=== PATIENT | male | born 1950 | race Caucasian/White ===

== ENCOUNTER 2023-04-16 17:33 | Emergency (ER) | payer OTHER, SELFPAY ==
[2023-04-16] VITALS (12 sets, daily range): BP systolic 104–146; BP diastolic 58–79; PULSE 94–104; RESP 15–32; TEMP 37.4; O2SAT 95–100; BMI 31.5
--- NOTE | 2023-04-16 17:52 | ECG_ITS ---
The [facility] Test Date: 2023-04-16 Pat Name: VALENTIN FOREMANN Department: Room: - Gender: Male Business Professor: : 1950 Requested By: Laron Connolly Order Number: [id number] Reading MD: LORENA QUILES Measurements Intervals Mitchell Rate: 96 P: 22 ME: 164 QRS: 0 QRSD: 74 T: 43 QT: 344 QTc: 398 Interpretive Statements 1100 Sinus rhythm 9110 normal ECG No previous ECG available for comparison Electronically Signed On 04-17-2023 6:50:28 EST by LORENA QUILES
--- NOTE | 2023-04-16 17:53 | XR_ITS ---
The [address] [address] Patient Name: VALENTIN MOJICA MRN: [id number] date: 1950 Sex: M Assigned Patient Location: ER Current Patient Location: ED.MAIN Accession/Order Number: [id number] Exam Date: 04/16/2023 18:17 Report Date: 04/16/2023 19:44 At the request of: JOCE LAWS Procedure: XR acute abdomen series EXAM: XR acute abdomen series HISTORY: cough, vomiting COMPARISON: None. TECHNIQUE: Frontal view of the chest as well as upright and supine views of the abdomen FINDINGS: The heart size is within normal limits. No dense focal consolidation, pneumothorax or pleural effusion is seen. Nonspecific bowel gas pattern is seen. No air-filled distended loops of bowel is seen to suggest bowel obstruction. No gross pneumoperitoneum is seen. No definite pathologic calcification is seen. Patient is post left hip arthroplasty. Mild diffuse bony demineralization is seen. XR/XR acute abdomen series IMPRESSION: No acute abnormality. Electronically authenticated by: ANIL MARTINEZ Date: 04/16/2023 19:44
[2023-04-16 18:35] LABS: Basophils Percent Auto 0.1 % (0.2-2.0); Eosinophils Absolute Auto 0.1 10^3/uL (0.0-0.7); Eosinophils Percent Auto 0.8 % (0.9-7.0); Hematocrit 30.3 % (42.0-54.0); Hemoglobin 9.8 g/dL (14.0-18.0); Immature Granulocytes Abs Auto 0.08 10^3/uL (0.00-0.03); Immature Granulocytes Pct Auto 1.1 % (0.0-0.5); Lymphocytes Absolute Auto 1.6 10^3/uL (1.2-3.8); Lymphocytes Percent Auto 22.6 % (20.5-60.0); Mean Corpuscular HGB Conc 32.3 g/dL (29.9-35.2); Mean Corpuscular Hemoglobin 29.7 pg (25.9-34.0); Mean Corpuscular Volume 91.8 fL (80.0-94.0); Mean Platelet Volume 9.7 fL (9.5-13.5); Monocytes Absolute Auto 0.8 10^3/uL (0.3-0.8); Neutrophils Absolute Auto 4.6 10^3/uL (1.4-6.5); Neutrophils Percent Auto 64.4 % (43.0-75.0); Platelet Count 237 10^3/uL (150-450); Red Cell Distribution Width 13.7 % (11.0-15.0); White Blood Count 7.2 10^3/uL (4.0-11.0)
[2023-04-16] MEDS: 0.9 % SODIUM CHLORIDE 1,000 ML 999 ML IV (18:35)
[2023-04-16 18:37] LABS: Alanine Aminotransferase 18 U/L (16-63); Albumin Globulin Ratio 0.8; Albumin Level 3.2 g/dL (3.4-5.0); Alkaline Phosphatase 73 U/L (46-116); Anion Gap 15.4; Aspartate Amino Transferase 20 U/L (15-37); Bilirubin Total 0.6 mg/dL (0.2-1.0); Calcium 9.2 mg/dL (8.5-10.1); Carbon Dioxide 25.9 mmol/L (21.0-32.0); Chloride 101 mmol/L (98-107); Estimated GFR (African America >60 (>=60); Estimated GFR (Non-African Ame >60 (>=60); Globulin 4.1 g/dL; Glucose 130 mg/dL (74-106); Potassium 3.3 mmol/L (3.5-5.1); Sodium 139 mmol/L (136-145); Total Protein 7.3 g/dL (6.4-8.2)
[2023-04-16 18:38] LABS: Lactate/Lactic Acid 1.6 mmol/L (0.4-2.0)
[2023-04-16 18:43] LABS: Troponin I High Sensitivity 8.3 pg/mL (4.0-76.1)
[2023-04-16 18:48] LABS: SARS-CoV-2 Ag NEGATIVE (NEGATIVE)
[2023-04-16 18:58] LABS: Influenza Virus A Antigen Negative; Influenza Virus B Antigen Negative; Internal Control Within Normal Limits
--- NOTE | 2023-04-16 19:04 | ED_ITS ---
HPI - General Adult General Chief complaint: Nausea/Vomiting/Diarrhea Stated complaint: Flu Like Symptoms Time Seen by Provider: 04/16/23 17:44 Source: patient Mode of arrival: Wheelchair Limitations: no limitations History of Present Illness HPI narrative: Patient brought in by family - he is in town due to the today of his mother. 2-3 weeks ago the patient developed cough and was diagnosed with RSV - other testing was negative including Covid. The physician at the [facility] prescribed a cough medicine taken twice daily and a stomach medicine that he took 4 times a day, possibly carafte? Patient's cough has worsened rather than improved. He initially had sinus congestion and runny nose with soem sore throat - all of that is gone now. He only has the persistent and worsening cough that is sometimes productive. no chest pain. he admitted to some left groin pain over the last 3-4 days. He also vomited today. No known ill exposures. Related Data Allergies Allergy/AdvReac Type Severity Reaction Status Date / Time No Known Drug Allergies Allergy Verified 04/16/23 17:44 [facility] Medical History (Updated 04/16/23 @ 19:10 by Laron Connolly) History of poliomyelitis ?Z86.12 - Personal history of poliomyelitis (ICD-10) History of prostate cancer ?Z85.46 - Personal history of malignant neoplasm of prostate (ICD-10) History of diabetes mellitus ?Z86.39 - Personal history of other endocrine, nutritional and metabolic disease (ICD-10) History of asthma ?Z87.09 - Personal history of other diseases of the respiratory system (ICD- 10) Surgical History (Updated 04/16/23 @ 17:50 by Uriel Lerner) History of shoulder surgery ?Z98.890 - Other specified postprocedural states (ICD-10) History of hip replacement ?Z96.649 - Presence of unspecified artificial hip joint (ICD-10) History of tonsillectomy ?Z90.89 - Acquired absence of other organs (ICD-10) Social History Smoking status: Never smoker Exam Narrative Exam Narrative: Nurses notes and vital signs reviewed and patient is not hypoxic. afebrile General: Well-appearing and in no apparent distress. Skin: Warm, dry, no pallor noted. No rash. Head: Normocephalic, atraumatic. Neck: Supple, non-tender. Eye: Pupils are equal, round and EOMI. No scleral icterus. Ears, Nose, Mouth, and Throat: TM are clear, no posterior oropharynx erythema or nasal mucosal hypertrophy, uvula is mid-line Oral mucosa is moist Cardiovascular: Regular Rate and Rhythm without murmur, gallop or rub. Respiratory: No accessory muscle use or respiratory distress. frequent cough. Lungs are clear to auscultation, no wheezing, rales or rhonchi Chest Wall: no tenderness Musculoskeletal: normal ROM, no calf or popliteal tenderness, no lower extremity edema/swelling GI: Abdomen is soft, non-distended. Normal bowel sounds. No tenderness to palpation. No rebound, guarding, or rigidity noted. Neurological: A&O x4. No cranial nerve dysfunction observed. No truncal ataxia. Moves all extremities. Sensation intact. Psychiatric: Cooperative and interactive. Normal mood and affect. Constitutional Vital Signs, click to edit/add: Last Vital Signs Temp 99.4 F 04/16/23 17:37 Pulse 98 H 04/16/23 19:00 Resp 18 04/16/23 19:00 BP 119/63 04/16/23 19:00 Pulse Ox 95 04/16/23 19:00 O2 Del Method Room Air 04/16/23 17:37 Course Vital Signs Vital signs: Vital Signs Temperature 99.4 F 04/16/23 17:37 Pulse Rate 104 H 04/16/23 17:37 Respiratory Rate 24 04/16/23 17:37 Blood Pressure 104/79 04/16/23 17:37 Pulse Oximetry 95 04/16/23 17:37 Oxygen Delivery Method Room Air 04/16/23 17:37 Temperature 99.4 F 04/16/23 17:37 Pulse Rate 98 H 04/16/23 19:00 Respiratory Rate 18 04/16/23 19:00 Blood Pressure 119/63 04/16/23 19:00 Pulse Oximetry 95 04/16/23 19:00 Oxygen Delivery Method Room Air 04/16/23 17:37 Medical Decision Making MDM Narrative Medical decision making narrative: Patient was placed on cyber security analyst and EKG obtained. Blood drawn and sent for evaluation. CXR obtained. Abd xrays obtained. Patient given NS IVF. Normal white blood cell count. Negative influenza. Negative COVID. Unremarkable CMP. Troponin and negative BNP. Xray readings pending Patient signed out to Dr Wells at shift change to review xray results. Lab Data Lab results reviewed: Yes I reviewed the patient's lab results Labs: Lab Results 04/16/23 04/16/23 Range/Units 17:45 18:10 WBC 7.2 (4.0-11.0) 10^3/uL RBC 3.30 L (4.70-6.10) 10^6/uL Hgb 9.8 L (14.0-18.0) g/dL Hct 30.3 L (42.0-54.0) % MCV 91.8 (80.0-94.0) fL MCH 29.7 (25.9-34.0) pg MCHC 32.3 (29.9-35.2) g/dL RDW 13.7 (11.0-15.0) % Plt Count 237 (150-450) 10^3/uL MPV 9.7 (9.5-13.5) fL Neut % (Auto) 64.4 (43.0-75.0) % Lymph % (Auto) 22.6 (20.5-60.0) % [place] % (Auto) 11.0 (1.7-12.0) % Eos % (Auto) 0.8 L (0.9-7.0) % Baso % (Auto) 0.1 L (0.2-2.0) % Neut # (Auto) 4.6 (1.4-6.5) 10^3/uL Lymph # (Auto) 1.6 (1.2-3.8) 10^3/uL [place] # (Auto) 0.8 (0.3-0.8) 10^3/uL Eos # (Auto) 0.1 (0.0-0.7) 10^3/uL Baso # (Auto) 0.0 (0.0-0.1) 10^3/uL Abs Immat Gran (auto) 0.08 H (0.00-0.03) 10^3/uL Imm/Tot Granulo (auto) 1.1 H (0.0-0.5) % Sodium 139 (136-145) mmol/L Potassium 3.3 L (3.5-5.1) mmol/L Chloride 101 (98-107) mmol/L Carbon Dioxide 25.9 (21.0-32.0) mmol/L Anion Gap 15.4 BUN 6.0 L (7.0-18.0) mg/dL Creatinine 0.75 (0.70-1.30) mg/dL Est GFR ( Amer) >60 (>=60) Est GFR (Non-Af Amer) >60 (>=60) BUN/Creatinine Ratio 8.0 Glucose 130 H (74-106) mg/dL Lactate 1.6 (0.4-2.0) mmol/L Calcium 9.2 (8.5-10.1) mg/dL Total Bilirubin 0.6 (0.2-1.0) mg/dL AST 20 (15-37) U/L ALT 18 (16-63) U/L Alkaline Phosphatase 73 (46-116) U/L Troponin I High Sens 8.3 (4.0-76.1) pg/mL NT-Pro-B Natriuret Pep 125.0 (<=900.0) pg/mL Total Protein 7.3 (6.4-8.2) g/dL Albumin 3.2 L (3.4-5.0) g/dL Globulin 4.1 g/dL Albumin/Globulin Ratio 0.8 Influenza Type A Ag Negative Influenza Type B Ag Negative SARS-CoV-2 Ag (CV2AG) Negative (NEGATIVE) ECG Data Attestation: I personally reviewed and interpreted this ECG as follows: Interpretation: EKG interpretation: Emergency Department physician interpretation. Normal sinus rhythm at 96bpm. Normal axis, normal intervals and no ST segment elevation or depression. Normal EKG Discharge Plan Discharge Chief Complaint: Nausea/Vomiting/Diarrhea Clinical Impression: Cough Patient Disposition: Still a Patient Referrals: Physician,Non-Staff, MD [Primary Care Provider] - 1 week
[2023-04-16] MEDS: IPRATROPIUM/ALBUTEROL SULFATE 3 ML AMPUL.NEB IH (19:23)
[2023-04-16] MEDS: ALBUTEROL SULFATE 2.5 MG/3 ML VIAL NEB IH (20:28)
== END 2023-04-16 21:01 | disposition home or self-care (01) ==
PROVIDERS: Emergency Medicine; Emergency Provider Internal Medicine
DX: R05.8 Other specified cough (principal); Z86.12 Personal history of poliomyelitis; Z85.46 Personal history of malignant neoplasm of prostate; Z86.39 Personal history of other endocrine, nutritional and metabolic disease; Z87.09 Personal history of other diseases of the respiratory system; Z98.890 Other specified postprocedural states; Z90.89 Acquired absence of other organs; Z96.649 Presence of unspecified artificial hip joint; Z20.822 Contact with and (suspected) exposure to COVID-19
CPT/HCPCS: 36415; 74022; 80053; 83605; 83880; 84484; 85025; 87040; 87804; 87811; 93005; 94640; 96360; 99285